=== PATIENT | male | born 1965 | race Hispanic/Latino ===

== ENCOUNTER 2016-10-30 21:11 | Emergency (ER) | payer OTHER ==
[~2016-10-30] VITALS: Ht 157.5 cm; Wt 59.1 kg
[2016-10-30 21:55] VITALS: BP 115/60; PULSE 80; RESP 16; O2SAT 95
--- NOTE | 2016-10-30 22:52 | ED.REPORT ---
HPI-Overdose/Alcohol Toxicity Date of Service Oct 30, 2016 ED Provider: Tang Walker MD Pt is a 51 y.o. male who presents to the ED via police with ETOH intoxication. Per police pt was too intoxicated to care for himself. Upon examination pt is unable to provide a hx due to his current state of intoxication. Nursing Notes Stated Complaint: ETOH Chief Complaint: Substance Abuse Nursing Notes Reviewed: Yes Allergies: Coded Allergies: No Known Allergies (Unverified , 01/10/16) General Time Seen by Provider: 22:33 Chief Complaint Intoxicated, alcohol Hx Obtained From: Patient, Police Unable to Obtain Hx: Patient condition, Intoxicated Arrived By: Police Onset Occurred: Just prior to arrival Past Medical History Past Medical History Notes: History limited due to Pt intoxicated state, no prior history on file. Past Medical History On recheck patient denies any previous health history or surgical history. Past Surgical History Patient denies Social History Patient states he is currently homeless. Alcohol Use: >5 per day Drug Use: Denies drug use Other Social History: Homeless Ambulatory Status Independent Review of Systems Intoxication, ETOH Unable to Obtain ROS Patient condition, Intoxicated Complete sys rev & neg: except as marked. Physical Exam Initial Vital Signs Vital Signs (First) Date Time Temp Pulse Resp B/P Pulse Ox O2 Delivery O2 Flow Rate FiO2 10/30/16 21:55 36.5 80 16 115/60 95 Room Air Initial VS: Reviewed, Vital signs normal Head / Eyes: Atraumatic, Normocephalic Extremities: Vascular intact, Neuro intact Skin: Warm, Dry, No cyanosis General/Constitutional: Well appearing, Well developed, Well hydrated, Well nourished, Not toxic appearing Appearance / Presentation: Positive: Intoxicated Respiratory / Chest: Atraumatic, Breath sounds NL, Breath sounds = bilat, No respiratory distress, No rales, No rhonchi, No wheezing, No retractions, No stridor Cardiovascular: Heart rate NL, Regular rhythm, Heart sounds NL, No gallop, No murmurs, No rubs, Peripheral circulation NL Abdomen: Atraumatic, Soft, Non-tender, No guarding, No rebound, No distention Speech: Positive: Slurred (due to ETOH use) Psychiatric: Not suicidal, Not homicidal Head / Eyes: Atraumatic, Normocephalic Interpretation & Diagnostics Lab Results Interpretation Test 10/30/16 23:22 Hold Purple Top Tube Received (Received) Hold Blue Top Tube Received (Received) Hold [place] Top Tube Received (Received) Hold [place] Top Tube Received (Received) Alcohol, Quantitative 353mg/dL (0-10) CT Head Interpretation CONCLUSION: Normal non-contrast CT scan of the head. Radiologist: Felix Rae M.D. Re-Eval/Medical Decision Med Decision/Clinical Course 51-year-old male who was very intoxicated. He was found down but not in traffic. There is no outward evidence of trauma but he is very difficult to arouse so a CT scan of his head was done which was negative. He sobered over a period of hours in the emergency room. Upon time of discharge he was cooperative, conversant, coordinated and did not appear overtly intoxicated. Source of Hx: Old records Re-Evaluation/Progress : Time of Eval: 05:58 Patient Status: Condition improved Re-Evaluation/Progress Note: Pt rechecked. Pt is awake and alert. Discussed plan for discharge, pt understands and agrees with plan. Counseled Regarding: Diagnosis, Lab results, Need for follow-up, When/why to return to ED Discharge & Departure Impression: Primary Impression: Alcohol intoxication Complication of substance-induced condition: uncomplicated Qualified Code: F10.120 - Alcohol abuse with intoxication, uncomplicated Disposition: Home Discharge Condition All VS Reviewed: Yes Condition: Stable Patient Instructions: Alcohol Intoxication (ED) Additional Instructions: Do not drink so much alcohol. It is very dangerous to be that drunk. Contact your regular doctor for help in quitting drinking. No barbara mucho alcohol. Es muy peligroso que horace borracho. Ayuda para dejar de beber, pngase en contacto con ahumada mdico regular. Referrals: [facility] (PCP) [facility] Scribe Attestation Portions of this note were transcribed by Angelia Palomino. I, Dr. Walker personally performed the history, physical exam and medical decision-making; I reviewed and confirmed the accuracy of the information in the transcribed note. Signed by: Ian Simental, 10/31/16 and 0600. copies to: [facility] Tang Walker MD Oct 30, 2016 22:52 ANGELIA PALOMINO Oct 30, 2016 22:55 APOLONIA KUNZ Oct 31, 2016 06:53
[2016-10-31 00:57] VITALS: PULSE 79; O2SAT 96
[2016-10-31 02:16] VITALS: BP 97/48; PULSE 81; O2SAT 98
[2016-10-31 04:13] VITALS: BP 91/52; PULSE 75; O2SAT 96
[2016-10-31 06:10] VITALS: BP 99/64; PULSE 81; RESP 16; O2SAT 96
--- NOTE | 2016-10-31 08:20 | DRSVH ---
PROCEDURE: CT BRAIN WITHOUT CONTRAST ([id number]) INDICATIONS: found down, intoxicated TECHNIQUE: Noncontrast 4.5 mm thick angled axial sections acquired from the foramen magnum to the vertex, with c oronal reformats. COMPARISON: [facility], CT, CT BRAIN WO CON, 01/10/2016, 14:04. FINDINGS: Image quality: Excellent. CSF spaces: Basal cisterns are patent. No extra-axial fluid collections. Ventricles are normal in size and shape. Brain: No midline shift. No intracranial masses or hemorrhage. Min-white matter interface is norm al. Skull and face: Calvarium and visualized facial bones are intact, without suspicious lesions. Sinuses: Visualized sinuses and mastoids are clear. IMPRESSION: 1. No acute intracranial findings. Note: The preliminary [facility] interpretation and the final report are concordant. Dictated by: Ria Nath M.D. on 10/31/2016 at 8:17 Approved by: Ria Nath M.D. on 10/31/2016 at 8:18
== END 2016-10-31 07:49 | disposition home or self-care (01) ==
LOC: SED 21:11
DX: F10.220 Alcohol dependence with intoxication, uncomplicated (principal); Y90.8 Blood alcohol level of 240 mg/100 ml or more; Z59.0 Homelessness
CPT/HCPCS: 36415; 70450; 81002; 99284; G0480

== ENCOUNTER 2016-11-09 19:24 | Emergency (ER) | payer OTHER ==
[~2016-11-09] VITALS: Ht 149.9 cm; Wt 60.0 kg
--- NOTE | 2016-11-09 19:25 | ED.REPORT ---
HPI-Overdose/Alcohol Toxicity Date of Service Nov 09, 2016 ED Provider: Dr. Roberto Hess MD A 51 year old male presents to the ED via EMS intoxicated after being found unconscious just prior to arrival. EMS was contacted after the patient was found in a stranger's yard. They report that the patient smells of EtOH and experienced urinary incontinence. He was seen in the ED on 10/30 for a similar episode of intoxication. Patient was discharged in good condition. EMS state that the has been patient has occasionally exhibited a psychotic laugh. Patient is unable to provide history due to intoxication. Nursing Notes Stated Complaint: ETOH Nursing Notes Reviewed: Yes Allergies: Coded Allergies: No Known Allergies (Unverified , 11/09/16) General Time Seen by Provider: 19:25 Chief Complaint Intoxicated, alcohol Hx Obtained From: EMS Arrived By: Ambulance Onset Occurred: Just prior to arrival Symptom Duration: Since onset Progression Since Onset: Unchanged Additional Notes: Urinary incontinence Pertinent Negative: Pt denies other symptoms Recent Healthcare: Recent doctor visit, Recent hospitalization Past Medical History Past Medical History Notes: History limited due to Pt intoxicated state, no prior history on file. Past Medical History None reported. Past Surgical History Patient denies Smoking History Unknown if Ever Smoker Social History Alcohol Use: >5 per day Drug Use: Denies drug use Other Social History: Homeless Ambulatory Status Independent Review of Systems Unable to Obtain ROS Intoxicated Physical Exam Initial Vital Signs Vital Signs (First) Date Time Temp Pulse Resp B/P Pulse Ox O2 Delivery O2 Flow Rate FiO2 11/09/16 19:41 35.8 56 17 105/71 100 Room Air Initial VS: Reviewed Head / Eyes: Atraumatic, Normocephalic, PERRL Extremities: Vascular intact, Neuro intact, No swelling, No tenderness Skin: Warm, Dry, No cyanosis General/Constitutional: Awake Appearance / Presentation: Positive: Intoxicated (Smells strongly of EtOH) GENERAL: Patient is uttering non-intelligible words Respiratory / Chest: Atraumatic, Breath sounds NL, Breath sounds = bilat Cardiovascular: Regular rhythm, Heart sounds NL Heart Rate / Rhythm: Positive: Tachycardia Abdomen: Atraumatic, Soft, Non-tender, No palpable mass, No pulsatile mass Interpretation & Diagnostics Lab Results Interpretation Result Diagram: 11/09/16205511/09/162055 Test 11/09/16 20:45 11/09/16 20:56 Hold Urine Received (Received) White Blood Count 4.8th/mm3 (3.8-10.1) Red Blood Count 4.59mil/mm3 (4.40-5.80) Hemoglobin 15.0g/dL (13.8-17.2) Hematocrit 42.8% (41.0-50.0) Mean Corpuscular Volume 93.2fL (81-100) Mean Corpuscular Hemoglobin 32.7pg (27.0-35.0) Mean Corpuscular Hemoglobin Concent 35.0% (32.0-37.0) Red Cell Distribution Width 12.3% (12.3-15.4) Platelet Count 191bil/L (150-400) Neutrophils (%) (Auto) 44.8% (40-74) Lymphocytes (%) (Auto) 48.2% (14-46) Monocytes (%) (Auto) 5.6% (4-12) Eosinophils (%) (Auto) 1.0% (0-5) Basophils (%) (Auto) 0.4% (0-3) Prothrombin Time 10.8sec (8.1-12.5) Prothromb Time International Ratio 1.01ratio Sodium Level 142mEq/L (134-144) Potassium Level 4.1mEq/L (3.5-5.2) Chloride Level 104mEq/L (97-108) Carbon Dioxide Level 21mmol/L (18-29) Blood Urea Nitrogen 16mg/dL (6-24) Creatinine 1.06mg/dL (0.76-1.27) Estimat Glomerular Filtration Rate 79mL/min (>59) Glucose Level 108mg/dL (60-99) Calcium Level 8.0mg/dL (8.5-10.1) Total Bilirubin 0.2mg/dL (0.0-1.2) Aspartate Amino Transf (AST/SGOT) 183U/L (0-50) Alanine Aminotransferase (ALT/SGPT) 126U/L (0-44) Alkaline Phosphatase 207U/L (25-150) Total Protein 7.8g/dL (6.4-8.4) Albumin 4.1g/dL (3.4-5.0) Alcohol, Quantitative 458mg/dL (0-10) Re-Eval/Medical Decision Med Decision/Clinical Course I saw this patient upon arrival. He is too drunk to cooperate with interview. Exam did not reveal any obvious injuries and we will observe him in the emergency department until he vijay to the point of being able to assess him more completely. Re-Evaluation/Progress : Time of Eval: 21:03 Patient Status: Condition improved Re-Evaluation/Progress Note: Patient is rechecked. He is sleeping comfortably. Counseled Regarding: Diagnosis, Lab results, Need for follow-up, When/why to return to ED Discharge & Departure Impression: Primary Impression: Alcohol intoxication Complication of substance-induced condition: uncomplicated Qualified Code: F10.120 - Alcohol abuse with intoxication, uncomplicated Disposition: Home Discharge Condition All VS Reviewed: Yes Condition: Stable Referrals: [facility] (PCP) Care Transferred to: Dr. Walker Care Transferred at: 00:00 Scribe Attestation Portions of this note were transcribed by Elham Johnson. I, Dr. Hess personally performed the history, physical exam and medical decision-making; I reviewed and confirmed the accuracy of the information in the transcribed note. Signed by: Ian Delgado, 11/10/16 0000. copies to: [facility] Roberto Hess MD Nov 09, 2016 19:25 ELHAM JOHNSON Nov 09, 2016 20:31
[2016-11-09 19:41] VITALS: BP 105/71; PULSE 56; RESP 17; O2SAT 100
[2016-11-09 21:07] LABS: BASOPHILS % (AUTO) 0.4 % (0-3); MONOCYTES % (AUTO) 5.6 % (4-12); Mean Corpuscular Hemoglobin 32.7 pg (27.0-35.0); Mean Corpuscular Volume 93.2 fL (81-100); NEUTROPHILS % (AUTO) 44.8 % (40-74); Platelet Count 191 bil/L (150-400)
[2016-11-09 21:29] LABS: INR 1.01 ratio
[2016-11-09 23:54] VITALS: BP 106/83; PULSE 86; O2SAT 92
[2016-11-10 07:00] VITALS: BP 97/60; PULSE 93; O2SAT 98
[2016-11-10 09:40] VITALS: BP 100/58; PULSE 85; RESP 17; O2SAT 99
== END 2016-11-10 09:41 | disposition home or self-care (01) ==
LOC: SED 19:24
DX: F10.120 Alcohol abuse with intoxication, uncomplicated (principal); R32 Unspecified urinary incontinence; Z59.0 Homelessness
CPT/HCPCS: 36415; 80053; 85025; 85610; 99283; G0480